=== PATIENT | female | born 1970 | race Caucasian/White ===

== ENCOUNTER 2025-01-12 15:42 | Outpatient (CLI) | payer OTHER, SELFPAY ==
--- NOTE | ~2025-01-12 | XR_ITS ---
HISTORY: pain in right shoulder COMPARISON: None TECHNIQUE: 3 views of the right shoulder were performed FINDINGS: No acute fracture. The glenohumeral joint space is maintained. Significant degenerative disease is identified within the right acromioclavicular joint space with daysi int space narrowing, sclerosis, vacuum phenomena and upsloping of the distal clavicle. The visualized portion of the adjacent right lung is clear. The humeral head is well seated within the glenoid fossa. IMPRESSION: Degenerative disease, without acute fracture or anterior dislocation. Reviewed, dictated and finalized at location A. IMPRESSION: Degenerative disease, without acute fracture or anterior dislocati on.
--- OUTSIDE RECORDS SUMMARY | 2025-01-12 16:20 | XMS_ITS | Clinical Summary ---
Author Organization [facility] Address [address] [place] [address] Phone Care Team Providers Care Turf Grower Name Role Phone April Larry RACHEL, SOUND EDITOR Primary Care Provider [phone] Allergies Active Allergy Reactions Criticality Noted Date Comments Zolpidem Unknown 01/06/2025 Penicillins Unknown 01/06/2025 Medications Albuterol-Budes onide (Airsupra) 90-80 MCG/ACT Aerosol take by inhalation. Active Fexofenadine-Ps eudoephedrine (DOMINIC-D 24 HOUR PO) Take by mouth. Activ e allopurinol (ZYLOPRIM) 300 MG Tablet Take 300 mg by mouth daily. Active buPROPion (WELLBUTRIN) 150 MG XL tablet Take 150 mg by mouth every morning. Active Cyanocobalamin (B-12 PO) Take by mouth. Activ e diazePAM (VALIUM) 5 MG Tablet Take 5 mg by mouth every 8 hours as needed. Active DULoxetine HCl 40 MG Capsule Delayed Release Sprinkle Take by mouth. Activ e hydrOXYzine (ATARAX) 50 MG Tablet Take 50 mg by mouth every 6 hours as needed. Active linaclotide (Linzess) 290 MCG Capsule Take by mouth every morning (before breakfast). Active lisinopril (PRINIVIL, ZESTRIL) 10 MG Tablet Take 10 mg by mouth daily. Active Loratadine 10 MG Capsule Take by mouth. Acti ve traZODone (DESYREL) 150 MG Tablet Take 150 mg by mouth nightly. Active Ubrogepant (Ubrelvy) 100 MG Tablet Take by mouth. Activ e Cariprazine HCl (Vraylar) 3 MG Capsule Take by mouth. Activ e Tirzepatide-[place] [facility] (ZEPBOUND SC) by Subcutaneous route. Active Family History Medical History Relation Name Comments Diabetes Maternal Aunt Heart Disease Maternal Grandfather Diabetes Maternal Uncle Heart Attack Mother pulmonary emphysema Mother Alzheimer's Disease Paternal Grandfather Relation Name Status Comments Maternal Aunt Maternal Grandfather Maternal Uncle Mother Paternal Grandfather Social History Tobacco Use Types Packs/Day Years Used Date Smoking Tobacco: Some Days Cigarettes Smokeless Tobacco: Never Tobacco Cessation:Ready to Q uit: Not Asked; Counseling Given: Not Answered Alcohol Use Standard Drinks/Week Comments Yes 0 (1 standard drink = 0.6 oz pur e alcohol) occasional Comments Unknown Sex and Gender Information Value Date Recorded Sex Assigned at Not on file Legal Sex Female 4:21 PM CDT Gender Identity Not on file Sexual Orientation Not on file Plan of Treatment Upcoming Encounters Date Type Department Care Team (Late st Contact Info) Description 07/23/2025 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 Office Visit [facility] [address] [place] [address] Galileo Stanley MD [address] [place] [address] Health Maintenance Due Date Last Done Comments Hepatitis C Virus (HCV) Screening 1972 Mammogram 1972 TdaP Immunization 1972 Hepatitis B Immunization (1 of 3 - 19+ 3-dose series) 1991 Pneumococcal Immunization (5 0+ years) (1 of 2 - PCV) 1991 Pap Smear 1993 Cervical Cancer Screening (CCS) 2002 HPV/Cotest 2002 Colonoscopy 2017 Colorectal Cancer Screening 2017 Cologuard 2022 Immunochemical Fecal Occult Blood 2022 Zoster Immunization (1 of 2) 2022 SARS-COV-2 Immunization (1 - 2023-25 season) 2024 Influenza Immunization (Seas on Ended) 2025 Respiratory Syncytial Virus (RSV) Immunization (Adult) (1 - 1-dose 75+ series) 2047 Human Papillomavirus (HPV) Immunization Aged Out No longer eligible b ased on patient's age to complete this topic Meningococcal Immunization (ACWY) Aged Out No longer eligible based on patient's age to complete this topic Rotavirus Immunization Aged Out No lo nger eligible based on patient's age to complete this topic Care Teams Turf Grower Relationship Specialty Start Date End Date April Larry APRN, SOUND EDITOR [address] [place] [address] PCP - General Advanced Practice Nurse 01/06/25
--- OUTSIDE RECORDS SUMMARY | 2025-01-12 16:20 | XMS_ITS | Patient Health Record ---
Author Organization [facility] Address [address] [place] [id number] Care Team Providers Care Automobile Tester Name Role Phone Adamaris Davis Unavailable Reason For Referral No Information Medications Medication SIG (Take, Route, Frequency, Duration) Notes Start Date End Date Status Black Brennen *Pick strength-f orm from [facility] for eRX* Active Problems Problem Type SNOMED Code ICD Code Onset Dates Problem Status W/U Status Risk Notes Problem 759552420 Genital warts (A63.0) Active confirmed Problem 32195137 Irregular menses (N92.6) Active confirmed Problem [id number] Perimenopause (N95.1) Active confirmed Plan Of Treatment No Information Medical (General) History Medical History History ICD Code HPV/genital warts Surgical History Surgery Date(Month/Year) cyst removed from face 1989 c-sections 97,05
== END 2025-01-12 15:43 | disposition home or self-care (01) ==
DX: M19.011 Primary osteoarthritis, right shoulder (principal)
CPT/HCPCS: 73030